=== PATIENT | female | born 1985 | race African-American/Black ===

== ENCOUNTER 2018-01-18 21:54 | Emergency (ER) | payer OTHER, SELFPAY ==
[2018-01-18] MEDS ORDERED: Lidocaine 1% w/Epinephrine 1:100K 20 ML VIAL ONE (23:37)
== END 2018-01-19 00:17 | disposition home or self-care (01) ==
LOC: ERS 21:54
DX: L02.411 Cutaneous abscess of right axilla (principal); F17.210 Nicotine dependence, cigarettes, uncomplicated
CPT/HCPCS: 10060; J2001

== ENCOUNTER 2019-06-21 10:22 | Emergency (ER) | payer BC ==
[2019-06-21] MEDS ORDERED: Morphine 4 MG/ML VIAL ONE (10:48)
[2019-06-21] MEDS ORDERED: Ondansetron PF 4 MG/2 ML Vial ONE (10:48)
[2019-06-21 11:10] LABS: #Lymphocytes 1.8 thou/uL (1.20-3.40); #Monocytes 0.4 thou/uL (0.11-0.59); #Neutrophils 4.3 thou/uL (1.40-6.50); %Basophils 0.6 % (0.0-1.0); %Eosinophils 0.4 % (0.0-10.0); %Lymphocytes 27.1 % (21.0-51.0); %Monocytes 6.3 % (0.0-10.0); %Neutrophils 65.6 % (42.0-75.0); BHCG - Serum Negative (NEGATIVE); Hemoglobin 14.7 g/dL (12.0-16.0); Mean Corpuscular HGB CONC 35.2 g/dL (32.0-36.0); Mean Corpuscular Volume 85.3 fL (78.0-98.0); Mean Platelet Volume 8.3 fL (7.4-10.4); Platelet Count 200 thou/uL (130-400); Pregs Control Background? CLEAR/WHITE (CLR/WHITE); Pregs Control Bar Appear? YES (CONTROL BAR); RBC Distribution Width 12.1 % (11.5-14.5); Red Blood Cell (RBC) Count 4.92 mill/uL (4.20-5.40); White Blood Cell (WBC) Count 6.6 thou/uL (4.8-10.8)
[2019-06-21 11:19] LABS: ALT (SGPT) 11 U/L (8-55); AST (SGOT) 13 U/L (5-34); Alkaline Phosphatase 76 U/L (40-150); Anion Gap 12 mmol/L (10-20); BUN (Urea Nitrogen) 9 mg/dL (7.0-18.7); Bilirubin, Total 0.5 mg/dL (0.2-1.2); Calc. Creatinine Clearance 0 mL/min (70-130); Calcium 9.4 mg/dL (7.8-10.44); Carbon Dioxide 22 mmol/L (22-29); Chloride 104 mmol/L (98-107); Estimated GFR-MDRD Greater than 90; Globulin 3.3 g/dL (2.4-3.5); Glucose 131 mg/dL (70-105); Lipase 24 U/L (8-78); Potassium 3.6 mmol/L (3.5-5.1); Protein, Total 7.3 g/dL (6.0-8.3); Sodium 134 mmol/L (136-145)
--- NOTE | 2019-06-21 12:01 | CT ---
CT ABDOMEN AND PELVIS WITH CONTRAST: Date: 06/21/19 COMPARISON: None. HISTORY: Diffuse abdominal pain and back pain that began on Tuesday. TECHNIQUE: Multiple contiguous axial images were obtained in a CT of the abdomen and pelvis with contrast. Coron al reformats were performed. FINDINGS: There are tiny subcentimeter hypodensities in the liver which are too small to definitely characteriz e and may represent cysts. There is a tiny subcentimeter hypodensity in the left kidney which is also too small to characterize but likely represents a cyst. The gallbladder, right kidney, adrenal gland s, spleen, and pancreas are unremarkable. No free air, free fluid, or stranding changes are seen in the abdomen or pelvis. There is a large amount of fluid within the uterus which extends down into the vagina. The large and small bowel are unremarkable. The appendix is unremarkable. No abdominal or pelvic lymphadenopathy se en. Osseous structures, visualized inferior thorax, and abdominal wall soft tissues are unremarkable. IMPRESSION: There is fluid in the uterus extending down into the vagina. 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 Correlate with physical examination. POS: [facility] [place]
[2019-06-21 12:50] LABS: Bilirubin Negative (Negative); Blood, Urine Negative (Negative); Clarity Clear (Clear); Glucose, Urine (Dipstick) Normal (Negative); Leukocyte Negative Leu/uL (Negative); Nitrite Negative (Negative); Protein, Urine (Dipstick) Negative (Neg-Trace); Urobilinogen Normal mg/dL (Less than 2)
--- NOTE | 2019-06-21 14:34 | CON ---
DATE OF CONSULTATION: 06/21/2019 REQUESTING PHYSICIAN: Zeb Ramírez MD. EVALUATING PHYSICIAN: Matt Cuevas MD REASON FOR CONSULTATION: Abdominal pain, abnormal CT scan. HISTORY OF PRESENT ILLNESS: Ms. Lorenzana is a 33-year-old black G0 with a normal last menstrual period over a year ago, who presents to the ER complaining of abdominal pain after drinking a large amount of what she describes as a wine-like beverage. She has had nausea but no emesis. She denies fever or chills. PAST OBSTETRICAL HISTORY: The patient states she has never been . She has used Depo-Provera in the past. She states her last Pap smear on exam was January of this year with Dr. Dejan Herring. She states that she was told it was normal at that time. PAST MEDICAL HISTORY: None. PAST SURGICAL HISTORY: None. CURRENT MEDICATIONS: None. ALLERGIES: BACTRIM, WHICH SHE SAYS GIVES HER SWELLING. SOCIAL HISTORY: She drinks socially. She also smokes occasionally. She denies illicit drug use. PHYSICAL EXAMINATION: VITAL SIGNS: Vital signs are stable. She is afebrile in the emergency room. GENERAL: She is pleasant, in no acute distress. She has been medicated. ABDOMEN: Soft. There is no guarding or rebound. PELVIC: Speculum exam of the vagina shows the vagina to be deep. The cervix is nulliparous. There is no blood in the vagina. On bimanual examination, there is no cervical motion tenderness. LABORATORY DATA: White count 6.6, hemoglobin and hematocrit 14.7 and 42 respectively, platelet count 200,000. test is negative. Urinalysis shows a specific gravity of 1.049 with negative protein, negative blood, negative nitrites, and negative leukocyte esterase. IMAGING STUDIES: CT scan of the abdomen shows no evidence of free air, free fluid, or stranding changes seen in the abdomen or pelvis. There is what appears to be a large amount of fluid in the uterus that extends down to vagina. Appendix is unremarkable. ASSESSMENT: Findings at this time are most consistent with a hematocolpos with otherwise nonfocal pelvic exam. I would correlate the CT findings with an outpatient ultrasound. Should the ultrasound confirms a significant hematocolpos, consideration could be made for doing either a D&C or an endometrial biopsy as an outpatient. I have discussed this in detail with the patient, and she shows understanding of the things I have said to her and agrees with this plan. Job ID: [id number]
== END 2019-06-21 13:30 | disposition home or self-care (01) ==
LOC: ERS 10:22
DX: N94.6 Dysmenorrhea, unspecified (principal); F17.210 Nicotine dependence, cigarettes, uncomplicated
CPT/HCPCS: 74177; 80053; 81003; 83690; 84703; 85025; 96374; 96375; J2270; J2405

== ENCOUNTER 2019-06-23 12:24 | Emergency (ER) | payer BC ==
[2019-06-23] MEDS ORDERED: Ketorolac Tromethamine 60 MG/2 ML VIAL ONE ×2 (13:37→14:40)
== END 2019-06-23 15:05 | disposition home or self-care (01) ==
LOC: ERS 12:24
DX: R10.2 Pelvic and perineal pain (principal); F17.210 Nicotine dependence, cigarettes, uncomplicated; Z79.891 Long term (current) use of opiate analgesic; Z79.899 Other long term (current) drug therapy
CPT/HCPCS: 96372; 99283; J1885

== ENCOUNTER 2020-11-02 19:44 | Emergency (ER) | payer BC ==
--- NOTE | 2020-11-02 20:47 | RAD ---
RIGHT KNEE FOUR VIEWS: History: Right knee pain. FINDINGS: No fracture, dislocation, or bony destruction is seen. There is fullness in the suprapatellar pouch, suspicious for joint effusion. IMPRESSION: As above. POS: [facility]
== END 2020-11-02 21:20 | disposition home or self-care (01) ==
LOC: ERS 19:44
DX: S83.91XA Sprain of unspecified site of right knee, initial encounter (principal); F17.290 Nicotine dependence, other tobacco product, uncomplicated; X58.XXXA Exposure to other specified factors, initial encounter